=== PATIENT | male | born 1985 | race Caucasian/White ===

== ENCOUNTER 2017-11-07 04:43 | Emergency (ER) | payer SELFPAY ==
[~2017-11-07] VITALS: Ht 180.3 cm; Wt 88.5 kg
[~2017-11-07 04:43] MED LIST: ALPR0.25 PO
--- NOTE | 2017-11-07 05:12 | NUR ---
PT AMBULATORY TO ER BED 9. PT BIB FRIEND, PT C/O MIGRAINE HEADACHE X 1 DAY. PT PLACED ON HAM STRINGER. VSS/RESP EVEN UNLABORED/NAD NOTED/SKIN WARM AND DRY/DENIES N-V-D/ AFEBRILE/AOX4. AWAITING MD FERMIN.
[2017-11-07] MEDS ORDERED: KETOROLAC TROMETHAMINE INJ 30 MG/ML VIAL ONE (05:42)
[2017-11-07] MEDS ORDERED: ONDANSETRON HCL/PF 4 MG/2 ML VIAL ONE (05:42)
--- NOTE | 2017-11-07 05:54 | NUR ---
20G IV TO L AC X 1 ATTEMPT USING ASEPTIC TECH, IV FLUSHES EASILY WITH NS. NO S/S INFILTRATION. MEDICATED PER MD ORDERS.
[2017-11-07] MEDS ORDERED: KETOROLAC TROMETHAMINE INJ 30 MG/ML VIAL IV ONE (06:00)
[2017-11-07] MEDS ORDERED: ONDANSETRON HCL/PF - ER 4 MG/2 ML VIAL IV ONE (06:00)
--- NOTE | 2017-11-07 06:27 | NUR ---
IV removed. Catheter intact and site benign. Pressure and 4x4 applied to site. No bleeding noted. Patient discharged to home in stable condition. Written and verbal after care instructions given. Patient verbalizes understanding of instruction. Patient ambulatory with a steady gait.
[2017-11-07 06:28] VITALS: BP 121/69
== END 2017-11-07 06:29 | disposition home or self-care (01) ==
LOC: ER 04:46
DX: G43.909 Migraine, unspecified, not intractable, without status migrainosus (principal); F41.9 Anxiety disorder, unspecified; Z88.6 Allergy status to analgesic agent; Z59.0 Homelessness
CPT/HCPCS: 96374; 96375; 99284; A4606; J1885; J2405 ×2; Z7610

== ENCOUNTER 2017-11-16 23:21 | Emergency (ER) | payer SELFPAY ==
[~2017-11-16] VITALS: Ht 175.3 cm; Wt 90.7 kg
[2017-11-17] MEDS ORDERED: ONDANSETRON HCL/PF 4 MG/2 ML VIAL ONE (01:15)
[2017-11-17] MEDS ORDERED: KETOROLAC TROMETHAMINE INJ 30 MG/ML VIAL ONE (01:15)
[2017-11-17] MEDS ORDERED: KETOROLAC TROMETHAMINE INJ 30 MG/ML VIAL IV ONE (01:30)
[2017-11-17] MEDS ORDERED: IV NS 0.9% 500 ML BAG IV ONE (01:30)
[2017-11-17] MEDS ORDERED: ONDANSETRON HCL/PF - ER 4 MG/2 ML VIAL IV ONE (01:30)
[2017-11-17 02:26] VITALS: BP 118/66
== END 2017-11-17 02:29 | disposition home or self-care (01) ==
LOC: ER 23:29
DX: G43.909 Migraine, unspecified, not intractable, without status migrainosus (principal); F41.9 Anxiety disorder, unspecified; Z59.0 Homelessness
CPT/HCPCS: 96374; 96375; 99284; A4606; J1885; J2405 ×2; J7040; Z7610

== ENCOUNTER 2017-12-08 20:32 | Emergency (ER) | payer OTHER ==
[~2017-12-08] VITALS: Ht 182.9 cm; Wt 88.5 kg
[2017-12-08 20:39] VITALS: BP 127/80
== END 2017-12-08 21:44 | disposition home or self-care (01) ==
LOC: ER 20:36
DX: R07.89 Other chest pain (principal); F41.9 Anxiety disorder, unspecified; G43.909 Migraine, unspecified, not intractable, without status migrainosus; Z59.0 Homelessness
CPT/HCPCS: 71046; A4606; Z7610